=== PATIENT | male | born 1945 | race Caucasian/White ===

== ENCOUNTER 2019-05-04 11:16 | Emergency (ER) | payer MEDICARE, BC ==
[~2019-05-04] VITALS: Ht 185.4 cm; Wt 120.9 kg
[2019-05-04 11:38] LABS: URINE APPEARANCE CLEAR; URINE BILIRUBIN NEGATIVE (NEGATIVE); URINE BLOOD NEGATIVE (NEGATIVE); URINE COLOR YELLOW; URINE GLUCOSE NEGATIVE (NEGATIVE); URINE KETONE NEGATIVE (NEGATIVE); URINE LEUKOCYTE ESTERASE NEGATIVE (NEGATIVE); URINE NITRATE NEGATIVE (NEGATIVE); URINE PROTEIN(semi-quant) TRACE mg/dL (NEGATIVE); URINE UROBILINOGEN NORMAL (NORMAL)
[2019-05-04 11:39] LABS: URINE MUCUS PRESENT (NOT PRESENT)
[2019-05-04] MEDS ORDERED: LEVOTHYROXINE125 MCG PO (11:44)
[2019-05-04] MEDS ORDERED: PIOGLITAZONE HY45 MG PO (11:45)
[2019-05-04] MEDS ORDERED: GLUCOPHAGE PO (11:45)
[2019-05-04] MEDS ORDERED: AMLODIPINE-VALS1 TAB PO (11:46)
[2019-05-04] MEDS ORDERED: ASPIRIN E.C. 8181 MG PO (11:46)
[2019-05-04 13:16] VITALS: BP 98/62
== END 2019-05-04 13:28 | disposition short-term general hospital (02) ==
LOC: ED 11:16
PROVIDERS: Nurse Practitioner Primary Care
DX: K80.00 Calculus of gallbladder with acute cholecystitis without obstruction (principal); E11.9 Type 2 diabetes mellitus without complications; I10 Essential (primary) hypertension; E07.9 Disorder of thyroid, unspecified; Z79.84 Long term (current) use of oral hypoglycemic drugs; Z88.0 Allergy status to penicillin; Z79.82 Long term (current) use of aspirin
CPT/HCPCS: Q9967

== ENCOUNTER → 2019-05-04 | Outpatient (CLI) | payer MEDICARE, BC ==
[~2019-05-04] VITALS: Ht 185.4 cm; Wt 120.9 kg
[~2019-05-04] MED LIST: AMLODIPINE-VALS1 TAB PO; ASPIRIN E.C. 8181 MG PO; GLUCOPHAGE PO; LEVOTHYROXINE125 MCG PO; PIOGLITAZONE HY45 MG PO
[2019-05-04 08:45] VITALS: BP 108/63
--- NOTE | 2019-05-04 08:45 | NUR ---
PT BROUGHT IN FOR OUTPATIENT EKG, MEDS, AND FLUIDS. PT CURRENTLY DENIES ABD PAIN AND COMPAINS OF BEING SLIGHTLY NAUSEATED WITH SOME FAMILY PROMPTING. PT DOZING OFF AND ON BETWEEN ASSESSMENTS. COMPLAINS OF PAIN AT 7/10 LOCATED IN HIP WHICH IS A CHONIC ISSUE FOR HIM. PT IN CHAIR WITH CALL LIGHT IN REACH. FAMILY AT BEDSIDE
[2019-05-04 09:19] VITALS: BP 100/61
[2019-05-04 09:48] LABS: ALBUMIN 3.5 g/dL (3.4-4.8); POTASSIUM 3.3 mmol/L (3.5-5.1); SODIUM 135 mmol/L (136-145)
[2019-05-04 09:49] LABS: CALCIUM 9.2 mg/dL (8.3-10.5)
[2019-05-04 09:51] LABS: GLUCOSE 189 mg/dL (75-110); TOTAL PROTEIN 7.1 g/dL (6.2-8.1)
[2019-05-04 09:52] LABS: CARBON DIOXIDE 25 mmol/L (23-31); TOTAL BILIRUBIN 2.2 mg/dL (0.2-1.2)
[2019-05-04 09:56] LABS: AST-SGOT 20 U/L (5-34); HEMATOCRIT 42.2 % (42.0-52.0); HEMOGLOBIN 13.8 g/dL (13.5-18.0); RED BLOOD COUNT 4.55 M/mm3 (4.20-5.60); RED CELL DISTRIBUTION WIDTH 13.7 % (11.5-14.5)
[2019-05-04 09:57] LABS: ALT/SGPT 21 U/L (0-55)
[2019-05-04 09:58] LABS: LIPASE 10 U/L (8-78)
[2019-05-04 10:27] LABS: WHITE BLOOD COUNT 20.1 K/mm3 (4.8-10.8)
[2019-05-04 10:28] LABS: TROPONIN-I < 0.03 ng/mL (<0.030)
== END ==
LOC: AMSURD 08:02
PROVIDERS: Nurse Practitioner
DX: J98.6 Disorders of diaphragm (principal); R53.81 Other malaise; R11.0 Nausea
CPT/HCPCS: J1885; J2405; J7030

== ENCOUNTER → 2022-02-28 | Outpatient (CLI) | payer MEDICARE, BC ==
[2022-02-28 17:55] LABS: D-DIMER 0.8 mg/L FEU (0.15-0.50)
== END ==
LOC: VAS 16:13 → AMSURD 16:13
PROVIDERS: Family Medicine
DX: Z13.6 Encounter for screening for cardiovascular disorders (principal); E11.9 Type 2 diabetes mellitus without complications; I10 Essential (primary) hypertension; M25.551 Pain in right hip; R60.9 Edema, unspecified
CPT/HCPCS: J1650

== ENCOUNTER → 2022-03-02 | Outpatient (CLI) | payer MEDICARE, BC ==
[2022-03-02 10:49] LABS: HEMATOCRIT 45.1 % (42.0-52.0); HEMOGLOBIN 14.8 g/dL (13.5-18.0); MEAN PLATELET VOLUME 11.3 fl (7.4-10.4); RED BLOOD COUNT 4.78 M/mm3 (4.20-5.60); WHITE BLOOD COUNT 12.4 K/mm3 (4.8-10.8)
[2022-03-02 10:53] LABS: POTASSIUM 3.9 mmol/L (3.5-5.1)
[2022-03-02 10:54] LABS: CALCIUM 9.2 mg/dL (8.3-10.5)
== END ==
LOC: LAB 09:42
PROVIDERS: Internal Medicine Interventional Cardiology
DX: R60.0 Localized edema (principal)

== ENCOUNTER 2022-04-09 13:57 | Outpatient (RCR) | payer MEDICARE, BC | END 2022-04-14 | disposition home or self-care (01) | LOC: PT | DX: M53.3 Sacrococcygeal disorders, not elsewhere classified (principal); M54.42 Lumbago with sciatica, left side; J98.6 Disorders of diaphragm ==

== ENCOUNTER 2022-04-15 08:00 | Outpatient (RCR) | payer MEDICARE, BC | END 2022-05-15 | disposition home or self-care (01) | LOC: PT | DX: M54.42 Lumbago with sciatica, left side (principal); J98.6 Disorders of diaphragm ==

== ENCOUNTER 2022-05-16 13:35 | Outpatient (RCR) | payer MEDICARE, BC | END 2022-06-11 14:28 | disposition home or self-care (01) | LOC: PT 13:35 | DX: M53.3 Sacrococcygeal disorders, not elsewhere classified (principal); M54.42 Lumbago with sciatica, left side; J98.6 Disorders of diaphragm ==

== ENCOUNTER → 2022-05-23 | Outpatient (CLI) | payer MEDICARE, BC | LOC: RAD 18:10 | DX: M51.06 Intervertebral disc disorders with myelopathy, lumbar region (principal); M51.36 Other intervertebral disc degeneration, lumbar region; M48.061 Spinal stenosis, lumbar region without neurogenic claudication ==

== ENCOUNTER → 2024-11-29 | Outpatient (CLI) | payer MEDICARE, BC | LOC: LAB 14:09 | DX: E11.9 Type 2 diabetes mellitus without complications (principal) ==